=== PATIENT | female | born 1960 | race Caucasian/White ===

== ENCOUNTER 2021-11-01 11:44 | Outpatient (CLI) | payer BC ==
[2021-11-01 12:46] LABS: #Basophils 0.1 10x3/uL (0.0-0.2); #Eosinphils 0.2 10x3/uL (0.0-0.5); #Monocytes 0.5 10x3/uL (0.0-1.1); #Neutrophils 2.9 10x3/uL (1.5-8.4); %Basophils 0.8 % (0.0-2.0); %Eosinophils 2.8 % (0.0-6.0); %Lymphocytes 43.7 % (18.0-47.0); %Monocytes 7.2 % (0.0-10.0); %Neutrophils 45.3 % (40.0-75.0); Hemoglobin 13.8 g/dL (12.0-15.5); Mean Corpuscular HGB CONC 33.7 g/dL (32.0-36.0); Mean Corpuscular Volume 98.1 fl (81.6-98.3); Mean Platelet Volume 10.7 fl (7.4-10.4); Platelet Count 221 10x3/uL (150-450); RBC Distribution Width 12.1 % (11.5-14.5); Red Blood Cell (RBC) Count 4.18 10x6/uL (3.90-5.03); White Blood Cell (WBC) Count 6.4 10x3/uL (3.5-10.5)
[2021-11-01 13:00] LABS: Anion Gap 16 mmol/L (10-20); BUN (Urea Nitrogen) 16 mg/dL (9.8-20.1); Calc. Creatinine Clearance 0 mL/min (70-130); Calcium 9.3 mg/dL (7.8-10.44); Carbon Dioxide 28 mmol/L (22-29); Chloride 105 mmol/L (98-107); Estimated GFR 76; Glucose 159 mg/dL (70-105); Potassium 5.1 mmol/L (3.5-5.1); Sodium 144 mmol/L (136-145)
== END 2021-11-01 11:45 | disposition home or self-care (01) ==
LOC: LABBT 11:44
PROVIDERS: ATTEND Orthopaedic Surgery
DX: Z01.818 Encounter for other preprocedural examination (principal); M23.322 Other meniscus derangements, posterior horn of medial meniscus, left knee; Z20.822 Contact with and (suspected) exposure to COVID-19
CPT/HCPCS: 71046; 80048; 85025; 87811; 93005; 93010

== ENCOUNTER 2021-11-06 09:42 | Day surgery (SDC) | payer BC ==
[2021-11-03 12:28] VITALS: BMI 31.1
[2021-11-06] MEDS ORDERED: PROPOFOL 20 ML ONE (10:26)
[2021-11-06] MEDS ORDERED: CEFAZOLIN 2 GM VIAL ONE (10:41)
[2021-11-06] MEDS ORDERED: Sodium Chloride 0.9% 100 ML ONE (10:41)
[2021-11-06] MEDS ORDERED: ePHEDrine 50 MG/ML VIAL ONE (11:03)
[2021-11-06] MEDS ORDERED: Lidocaine 1% PF 5 ML VIAL ONE (11:03)
[2021-11-06] MEDS ORDERED: Bupivacaine HCl 0.5%/Epinephrine 1:200,000/PF 30 ml Vial ONE (11:03)
[2021-11-06] MEDS ORDERED: PROPOFOL 200 MG/20 ML VIAL ONE (11:03)
[2021-11-06] MEDS ORDERED: Dexamethasone 20 MG/5 ML VIAL ONE (11:03)
[2021-11-06] MEDS ORDERED: Ondansetron PF 4 MG/2 ML Vial ONE (11:03)
[2021-11-06] MEDS ORDERED: Lidocaine 2% w/Epinephrine 1:200K 20 ML VIAL ONE (11:03)
[2021-11-06] MEDS ORDERED: fentaNYL Citrate/PF 100 MCG/2 ML SYRINGE ONE (11:09)
== END 2021-11-06 13:45 | disposition home or self-care (01) ==
LOC: SDC 09:42
PROVIDERS: ATTEND Orthopaedic Surgery
PROC: 0SBD4ZZ Excision of Left Knee Joint, Percutaneous Endoscopic Approach (ICD-10-PCS; principal; 2021-11-06)
DX: S83.242A Other tear of medial meniscus, current injury, left knee, initial encounter (principal); I10 Essential (primary) hypertension; E66.9 Obesity, unspecified; Z68.31 Body mass index [BMI] 31.0-31.9, adult; Z86.16 Personal history of COVID-19; Z79.82 Long term (current) use of aspirin; Z79.899 Other long term (current) drug therapy; X58.XXXA Exposure to other specified factors, initial encounter
CPT/HCPCS: J0690; J1100; J2405; J2704; J3490

== ENCOUNTER 2024-03-12 13:38 | Outpatient (CLI) | payer BC | END 2024-03-12 13:39 | disposition home or self-care (01) | LOC: SCSMRI 13:38 | PROVIDERS: ATTEND Orthopaedic Surgery | DX: M23.203 Derangement of unspecified medial meniscus due to old tear or injury, right knee (principal); M25.461 Effusion, right knee; M22.41 Chondromalacia patellae, right knee ==

== ENCOUNTER 2024-03-31 15:13 | Outpatient (CLI) | payer BC ==
[2024-03-31 16:26] LABS: #Basophils 0.05 10x3/uL (0.0-0.2); %Basophils 0.6 % (0.0-1.0); %Eosinophils 1.5 % (0.0-10.0); %Lymphocytes 38.1 % (21.0-51.0); %Monocytes 8.8 % (0.0-10.0); %Neutrophils 50.9 % (42.0-75.0); Hematocrit 40.1 % (36.0-47.0); Mean Corpuscular HGB CONC 34.9 g/dL (32.0-36.0); Mean Corpuscular Hemoglobin 33.9 pg (27.0-31.0); Mean Corpuscular Volume 97.1 fL (78.0-98.0); Mean Platelet Volume 10.3 fL (7.4-10.4); Platelet Count 234 10x3/uL (130-400); RBC Distribution Width 11.9 % (11.5-14.5); Red Blood Cell (RBC) Count 4.13 mill/uL (4.20-5.40)
[2024-03-31 16:45] LABS: Anion Gap 14 mmol/L (10-20); BUN (Urea Nitrogen) 15 mg/dL (9.8-20.1); Calc. Creatinine Clearance 0 mL/min (70-130); Calcium 9.7 mg/dL (7.8-10.44); Carbon Dioxide 26 mmol/L (23-31); Chloride 103 mmol/L (98-107); Estimated GFR 75; Glucose 98 mg/dL (80-115); Sodium 139 mmol/L (136-145)
== END 2024-03-31 15:14 | disposition home or self-care (01) ==
LOC: LABBT 15:13
PROVIDERS: ATTEND Orthopaedic Surgery
DX: Z01.818 Encounter for other preprocedural examination (principal); M23.91 Unspecified internal derangement of right knee
CPT/HCPCS: 80048; 85025; 93005; 93010

== ENCOUNTER 2024-04-03 05:33 | Day surgery (SDC) | payer BC ==
[2024-03-31 15:30] VITALS: BMI 31.1
[2024-04-03] MEDS ORDERED: fentaNYL 50 mcg/mL 1 mL Vial ONE (06:50)
[2024-04-03] MEDS ORDERED: Lidocaine 2% PF 5 ML VIAL ONE ×2 (06:50→07:23)
[2024-04-03] MEDS ORDERED: PROPOFOL 20 ML ONE ×2 (06:50→07:23)
[2024-04-03] MEDS ORDERED: EPINEPHrine 1 MG/ML VIAL ONE (06:50)
[2024-04-03] MEDS ORDERED: Lidocaine 1% (PF) 30 ML VIAL ONE (06:51)
[2024-04-03] MEDS ORDERED: Bupivacaine PF 0.5% 30 ML VIAL ONE (06:51)
[2024-04-03] MEDS ORDERED: Acetaminophen 500 MG TAB ONE (07:15)
[2024-04-03] MEDS ORDERED: CEFAZOLIN 2 GM VIAL ONE (07:18)
[2024-04-03] MEDS ORDERED: HYDROmorphone 0.5 MG/0.5 ML SYRINGE ONE (07:21)
[2024-04-03] MEDS ORDERED: Dexamethasone 4 mg/ml Vial ONE (07:23)
[2024-04-03] MEDS ORDERED: Ondansetron PF 4 MG/2 ML Vial ONE (07:23)
[2024-04-03] MEDS ORDERED: fentaNYL PF 100 MCG/2 ML SYRINGE ONE (07:27)
[2024-04-03] MEDS ORDERED: Ketorolac Tromethamine 30 MG (1 mL) VIAL ONE (07:27)
[2024-04-03] MEDS ORDERED: PHENYLEPHRINE-NS 100 MCG/ML 10 ML SYRINGE ONE (07:42)
[2024-04-03] MEDS ORDERED: Glycopyrrolate 0.2 MG/ML 5 ML SYRINGE ONE (07:42)
[2024-04-03] MEDS ORDERED: ePHEDrine Sulfate 50 MG/10 ML VIAL ONE (07:57)
[2024-04-03] MEDS ORDERED: HYDROcodone/Acetaminophen 5/325 mg Tablet ONE (10:55)
== END 2024-04-03 11:40 | disposition home or self-care (01) ==
LOC: SDC 05:33
PROVIDERS: ATTEND Orthopaedic Surgery
PROC: 3E0T3BZ Introduction of Anesthetic Agent into Peripheral Nerves and Plexi, Percutaneous Approach (ICD-10-PCS; principal; 2024-04-03)
PROC: 0SQC4ZZ Repair Right Knee Joint, Percutaneous Endoscopic Approach (ICD-10-PCS; principal; 2024-04-03)
DX: S83.241A Other tear of medial meniscus, current injury, right knee, initial encounter (principal); M23.91 Unspecified internal derangement of right knee; M25.561 Pain in right knee; M35.00 Sjogren syndrome, unspecified; I10 Essential (primary) hypertension; E78.5 Hyperlipidemia, unspecified; K21.9 Gastro-esophageal reflux disease without esophagitis; Z98.51 Tubal ligation status; Z86.16 Personal history of COVID-19; Z90.49 Acquired absence of other specified parts of digestive tract; Z90.710 Acquired absence of both cervix and uterus; Z79.82 Long term (current) use of aspirin; Z79.899 Other long term (current) drug therapy; X58.XXXA Exposure to other specified factors, initial encounter
CPT/HCPCS: C1713; J0171; J0665; J1100; J1885; J2405; J2704; J3010